=== PATIENT | female | born 1975 | race Caucasian/White ===

== ENCOUNTER → 2022-03-08 | Outpatient (CLI) | payer BC, SELFPAY ==
[2022-03-15 08:24] LABS: HPV APTIMA, High Risk Negative (Negative)
== END | disposition home or self-care (01) ==
LOC: LABSPEC 13:07
PROVIDERS: Visit Provider Obstetrics & Gynecology
DX: Z12.4 Encounter for screening for malignant neoplasm of cervix (principal)
CPT/HCPCS: 87624; 88175; G0145

== ENCOUNTER 2025-02-15 07:13 | Day surgery (SDC) | payer BC, SELFPAY ==
[2025-02-15] VITALS (8 sets, daily range): BP systolic 101–124; BP diastolic 68–80; PULSE 67–77; RESP 14–16; TEMP 36.1–36.4; O2SAT 97–100; BMI 22.4
[2025-02-15] MEDS: Lactated Ringers 1,000 ML 15 ML IV (07:48)
--- NOTE | 2025-02-15 07:59 | PCM.PRE.AN2 ---
ASA Classification* ASA Classification ASA Classification: 1 Assessment & Plan Anesthesia* Anesthesia Assessment Anesthesia Assessment: Discussed sedation and/or anesthesia options, risks, benefits, and alternatives with patient/parents/legal guardian/POA. Questions invited. The patient/parents/legal guardian/POA seems to understand and agrees to proceed with anesthesia plan. Reviewed the physical assessment, medical history, allergy history and patient home medications list prior to surgery/procedure/anesthetic and documented any changes. Performed airway and anesthesia risk assessments. 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 When Was Last Pacemaker Check QUESTION #4 FULL TEXT: You/Your Family Experience fever (hyperthermia) with Anesthesia Last Oral Intake Last Oral intake: Last Oral Intake NPO since 23:00 02/15/25 07:33 Meds taken in AM with sips of No 02/15/25 07:33 water? Meds patient instructed to take am of surgery PONV PONV - poultry inspector: PONV - poultry inspector Female No 02/10/25 13:40 HX of Motion Sickness No 02/10/25 13:40 HX of N/V After Surgery Yes 02/10/25 13:40 Non-Smoker Yes 02/10/25 13:40 Duration of Surgery greater No 02/10/25 13:40 than 60 minutes Number of Risk Factors 2 02/10/25 13:40 PONV Score Moderate Risk 02/10/25 13:40 Height & Weight Height & Weight: Anesthesia: Height & Weight Height 5 ft 11 in 02/15/25 07:33 Weight: 73 kg 02/15/25 07:33 Body Mass Index (BMI) 22.4 02/15/25 07:33 Respiratory Assessment Respiratory Assessment - poultry inspector: Respiratory Tract Infection Hx - poultry inspector Hx Respiratory Tract Infection No 02/10/25 13:40 STOP Sleep Apnea STOP Sleep Apnea - poultry inspector: STOP Sleep Apnea - poultry inspector Hx Hypertension No 02/10/25 13:40 Hx Sleep Apnea No 02/10/25 13:40 CPAP BIPAP Do you snore loudly (louder No 02/10/25 13:40 than talking or can be heard Do you often feel tired/ No 02/10/25 13:40 fatigued/ sleepy during daytime? Has anyone observed you stop No 02/10/25 13:40 breathing during sleep? STOP Results Negative 02/10/25 13:40 QUESTION #5 FULL TEXT : Do you snore loudly (louder than talking or can be heard through closed doors)? 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 Specify any problems Hx of Preganancy in last 3 No 02/10/25 13:40 Months Nurse Filling Out Transfusion VLEHMAN 02/10/25 13:40 & Questions: Date: 02/10/25 02/10/25 13:40 Time: 13:45 02/10/25 13:40 Patient unable to answer at this time (ie. confused, unrespo /Reproduction History /Reproductive History - poultry inspector: /Reproductive Hx- poultry inspector Hx Now No 02/10/25 13:40 Gestational Age (in weeks): EDC: Hx Hx Para Hx Section SAB No 02/10/25 13:40 Active Medications Active Medications: Current Medications Generic Name Dose Route Start Last Admin Trade Name Freq PRN Reason Stop Dose Admin Lactated Ringer's 1,000 mls @ 15 mls/hr 02/15/25 07:30 02/15/25 07:48 IV 15 mls/hr .Q48H PARVEEN Administration PFSH Medical History Wears glasses Non-smoker Personal history of colonic polyps Abdominal pain Constipation Home Medications ?Medication ?Instructions ?Recorded ?Last Taken ?Type multivitamin 1 tab PO QAM 01/31/25 Unknown History omega 5-tna-dlw-fish oil 60 mg-90 1 cap PO QDAY 01/31/25 02/07/25 History mg-500 mg capsule (Fish Oil) Allergy/AdvReac Type Severity Reaction Status Date / Time amoxicillin Allergy Rash Verified 02/15/25 07:32 Surgical History H/O hemorrhoidectomy H/O colonoscopy Social History Smoking Status: Never smoker alcohol intake: never substance use type: does not use Review of Systems (Anesthesia) ROS Narrative System reviewed and no additional complaints, except as documented.
--- NOTE | 2025-02-15 08:15 | COLBX_PTH ---
PATIENT: DINAH CLARK LOC: EN U#:[id number] AGE/SX: 49/F ROOM: RE02/15/[address]: Dr. Brendan Soni MD : 1975 BED: DIS: 02/15/2025 SPEC #: [id number] RECD: 02/16/25 09:36 STATUS: CONSTANTINO RETimmy #: [id number] ALMITA: 02/15/25 08:[address]: Brendan Soni DEPT: SURGICAL PATHOLOGY RECD BY: Gamal Barbosa ENTERED: 02/16/25 10:45 SP TYPE: COLON BX OTHR DR: Christy Houston, SAP ARIBA CONSULTANT-C Tissues: A - Sigmoid colon biopsy Procedures: Surgery Specimen Level IV HEADER OPERATION: Colonoscopy with polypectomy PRE-OP DIAGNOSIS: Personal history of colonic polyps TISSUE SUBMITTED: A- Sigmoid polyp MICROSCOPIC DIAGNOSIS A. Sigmoid colon, polyp, biopsy: * Tubular adenoma MICROSCOPIC DESCRIPTION Slides are reviewed. GROSS DESCRIPTION A. Received in formalin in a container labeled with the patient's name, date of , and sigmoid polyp is a 0.3 x 0.3 x 0.3 cm fragment of hair-pink mucosal tissue. Submitted in toto in A1. B 02-16-2025 CPT:35655
--- NOTE | 2025-02-15 08:26 | PCM.HP.STD ---
HPI - General General Date of Admission: 02/15/25 Date of Service: 02/15/25 Chief Complaint: colonoscopy HPI Narrative The patient is a 48-year-old female who is being seen today for colonoscopy. It sounds as though she has a history of colon polyps at the time of her last colonoscopy. Her last colonoscopy was about 12 years ago. She denies any blood in her stools. She denies any black or tarry stools. She does however complain of daily left lower quadrant cramping that she has attributed to gas. She does state that her last colonoscopy did comment about a tortuous colon [facility] Medical History Wears glasses Non-smoker Personal history of colonic polyps Abdominal pain Constipation Home Medications ?Medication ?Instructions ?Recorded ?Last Taken ?Type multivitamin 1 tab PO QAM 01/31/25 Unknown History omega 1-ryx-mio-fish oil 60 mg-90 1 cap PO QDAY 01/31/25 02/07/25 History mg-500 mg capsule (Fish Oil) Allergy/AdvReac Type Severity Reaction Status Date / Time amoxicillin Allergy Rash Verified 02/15/25 07:32 Surgical History H/O hemorrhoidectomy H/O colonoscopy Social History Smoking Status: Never smoker alcohol intake: never substance use type: does not use ROS Constitutional Constitutional: Reports systems reviewed and no addt'l complaints, except as documented Eyes Eyes: Reports systems reviewed and no addt'l complaints, except as documented ENT HEENT: Reports systems reviewed and no addt'l complaints, except as documented Cardiovascular Cardiovascular: Reports systems reviewed and no addt'l complaints, except as documented Respiratory/Chest Respiratory/Chest: Reports systems reviewed and no addt'l complaints, except as documented Vital Signs Vital Signs Vital Signs: 02/15/25 07:33 02/15/25 07:33 02/15/25 08:03 Temperature 97.5 F L 97.5 F L Temperature Source Temporal Pulse Rate 77 77 Respiratory Rate 16 16 Respiratory Pattern Normal Blood Pressure 124/75 H 124/75 H Blood Pressure Mean 91 Blood Pressure Source Monitor Blood Pressure Position Semi-Fowlers Blood Pressure Location Left Arm Pulse Ox 100 100 Oxygen Delivery Method Room Air Room Air Weight Weight: 160 lb 14.999 oz Body Mass Index (BMI) 22.4 Physical Exam Const alert, oriented x3 and no apparent distress Assessment & Plan Assessment/Plan (1) Personal history of colonic polyps: PLAN: Plan plan if for colonoscopy today. We reviewed the details of the planned procedure as well as risk benefits and alternatives. She wishes to proceed. This will begin shortly Charges/Coding Visit Charges Inpatient E&M: 56202 Init Hosp L2
--- NOTE | 2025-02-15 08:35 | NURSING ---
pt refuses test
--- NOTE | 2025-02-15 09:13 | OP.COLON_ITS ---
Patient Name: Yolie Macias Procedure Date: 02/15/2025 8:31 AM Date of : 1975 Age: 49 Procedure: Colonoscopy Indications: High risk colon cancer surveillance: Personal history of colonic polyps Providers: Brendan Soni MD Referring MD: Rodrigo Pillai Medicines: Monitored Anesthesia Care Patient Profile: Refer to note in patient chart for documentation of history and physical. Last Colonoscopy: more than 10 years ago. Complications: No immediate complications. Estimated blood loss: None. Procedure: Pre-Anesthesia Assessment: - Prior to the procedure, a History and Physical was performed, and patient medications and allergies were reviewed. The patient's tolerance of previous anesthesia was also reviewed. The risks and benefits of the procedure and the sedation options and risks were discussed with the patient. All questions were answered, and informed consent was obtained. Prior Anticoagulants: The patient has taken no anticoagulant or antiplatelet agents. ASA Grade Assessment: II - A patient with mild systemic disease. After reviewing the risks and benefits, the patient was deemed in satisfactory condition to undergo the procedure. After I obtained informed consent, the scope was passed under direct vision. Throughout the procedure, the patient's blood pressure, pulse, and oxygen saturations were monitored continuously. The colonoscope was introduced through the anus and advanced to the cecum, identified by appendiceal orifice and ileocecal valve. The ileocecal valve, appendiceal orifice, and rectum were photographed. The entire colon was well visualized. The colonoscopy was somewhat difficult due to a tortuous colon. The patient tolerated the procedure well. The quality of the bowel preparation was adequate. Moderate Sedation: See the other procedure note for documentation of moderate sedation with intraservice time. Scope In: 8:41:20 AM Scope Out: 9:07:36 AM Total Procedure Duration Time 0 hours 26 minutes 16 seconds Findings: The perianal and digital rectal examinations were normal. A few small-mouthed diverticula were found in the sigmoid colon. A 6 mm polyp was found in the sigmoid colon. The polyp was semi-sessile. The polyp was removed with a hot snare. Resection and retrieval were complete. Verification of patient identification for the specimen was done by the nurse using the patient's name, date and medical record number. Estimated blood loss was minimal. Internal hemorrhoids were found during retroflexion. The hemorrhoids were moderate. The exam was otherwise without abnormality on direct and retroflexion views. The sigmoid colon was moderately tortuous. Impression: - Diverticulosis in the sigmoid colon. - One 6 mm polyp in the sigmoid colon, removed with a hot snare. Resected and retrieved. - Internal hemorrhoids. - The examination was otherwise normal on direct and retroflexion views. - Tortuous colon. Recommendation: - Discharge patient to home (ambulatory). - High fiber diet. - Await pathology results. - Repeat colonoscopy in 5 years for surveillance. - Return to my office PRN. - Continue present medications. 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 All rights reserved. The codes documented in this report are preliminary and upon tv host review may be revised to meet current compliance requirements. Brendan Soni MD 02/15/2025 9:13:15 AM This report has been signed electronically. Number of Addenda: 0 Note Initiated On: 02/15/2025 8:31 AM
--- NOTE | 2025-02-15 09:14 | OP.CCLET_ITS ---
02/15/2025 Rodrigo Pillai Re : Colonoscopy procedure for Yolie Macias Dear Rosemarie This procedure was performed on Saturday, February 15, 2025. My impressions and recommendations are as follows: Impressions : - Diverticulosis in the sigmoid colon. - One 6 mm polyp in the sigmoid colon, removed with a hot snare. Resected and retrieved. - Internal hemorrhoids. - The examination was otherwise normal on direct and retroflexion views. - Tortuous colon. Recommendations : - Discharge patient to home (ambulatory). - High fiber diet. - Await pathology results. - Repeat colonoscopy in 5 years for surveillance. - Return to my office PRN. - Continue present medications. My findings are described in the full procedure note, which is enclosed. If I can be of further assistance, please feel free to contact me at . Sincerely, Brendan Soni MD 02/15/2025 9:13:15 AM This report has been signed electronically.
--- NOTE | 2025-02-15 09:16 | PCM.POST.ANE ---
Anesthesia: Postop Eval I Current Vital Signs Temperature: 97.4 F Pulse Rate: 72 Blood Pressure: 104/68 Respiratory Rate: 16 Pulse Ox: 97 Oxygen Delivery Method: Room Air Assessment Airway patent: Yes Spontaneous unlabored respirations: Yes Mental status: Asleep nausea: No Vomiting: No Anesthesia Complication: No Fluid Hydration Crystalloid volume administer (ml): 800 Total IV fluid infused: 800 Progress Note Anesthesia document: Postop Eval 1 completed: Yes
--- NOTE | 2025-02-15 10:39 | PCM.POSTANE2 ---
Anesthesia Postop Eval I Sum Postop Eval Completion status Anesthesia document: Postop Eval 1 completed: Yes Anesthesia Postop Eval I Summary Anesthesia Postop Eval I Summary: Anesthesia Postop Eval I: Assessment Summary Airway patent Yes 02/15/25 09:17 [email or web address] Spontaneous unlabored Yes 02/15/25 09:17 [email or web address] respirations Mental status Asleep 02/15/25 09:17 [email or web address] nausea No 02/15/25 09:17 [email or web address] Vomiting No 02/15/25 09:17 [email or web address] Anesthesia Postop Eval I: Fluid Summary Crystalloid volume administer 800 02/15/25 09:17 [email or web address] (ml) Colloids volume administered ( ml) Blood Product volume administered (ml) Total IV fluid infused 800 02/15/25 09:17 [email or web address] Anesthesia Postop Eval I: Summary Notes Anesthesia Complication No 02/15/25 09:17 [email or web address] Anesthesia Complication Comment: Post-operative progress note Anesthesia: Postop Eval II Evaluation Mental status: Awake and Calm Pain Level: 0 nausea: No Vomiting: No Complications Anesthesia Complication: No
== END 2025-02-15 10:00 | disposition home or self-care (01) ==
LOC: EN 07:14 → AC 07:15
PROVIDERS: PCP Nurse Practitioner Family; Referring Provider Nurse Practitioner Family; Visit Provider Surgery
PROC: 0DJD8ZZ Inspection of Lower Intestinal Tract, Via Natural or Artificial Opening Endoscopic (ICD-10-PCS; CPT 45378; principal; 2025-02-15 08:10)
DX: Z12.11 Encounter for screening for malignant neoplasm of colon (principal); K64.8 Other hemorrhoids; K57.30 Diverticulosis of large intestine without perforation or abscess without bleeding; D12.5 Benign neoplasm of sigmoid colon; Z86.0100 Personal history of colon polyps, unspecified
CPT/HCPCS: 45385; 88305; J2405